=== PATIENT | female | born 1940 | race Hispanic/Latino ===

== ENCOUNTER 2018-10-05 08:44 | Day surgery (SDC) | payer MEDICARE ==
[2018-10-05] VITALS (8 sets, daily range): BP systolic 93–143; BP diastolic 37–57
[~2018-10-05] VITALS: Ht 162.6 cm; Wt 80.3 kg
[~2018-10-05 08:44] MED LIST: AMLO5TAB9 PO; ASPI-555 PO; BISA1POW MC; CETI10TA86 PO; CLON1PAT13 TD; CYCL30DR OP; FERR500P12 MC; FOLI0.8T22 PO; FURO40TA5 PO; GABA-531 PO; HYDR100T27 PO; INSLAN SQ; MAGN240P PO; MONT10TA24 PO; NITR0.4T50 SL; OMEP40CA37 PO; PRAV10TA39 PO; SODIUM CHLORIDE 0.9% 1000ML 1,000 ML IV ONE; SUCR1TAB2 PO; TRAM50TA4 PO
[2018-10-05] MEDS ORDERED: BISA5TAB12 PO (10:08)
[2018-10-05] MEDS ORDERED: FERR325T22 PO (10:08)
[2018-10-05] MEDS ORDERED: CLON.3P TD (10:08)
[2018-10-05] MEDS ORDERED: MAGN400T40 PO (10:08)
[2018-10-05] MEDS ORDERED: PROPOFOL 10 MG/ML 20ML VIAL IV ONE (11:23)
== END 2018-10-05 12:25 | disposition home or self-care (01) ==
LOC: ENDO 08:44 → DAH 08:44 → ENDO 12:25
PROVIDERS: ATTEND Internal Medicine
DX: K29.30 Chronic superficial gastritis without bleeding (principal); K31.89 Other diseases of stomach and duodenum; K21.0 Gastro-esophageal reflux disease with esophagitis; K44.9 Diaphragmatic hernia without obstruction or gangrene; K22.8 Other specified diseases of esophagus; K92.0 Hematemesis; D50.9 Iron deficiency anemia, unspecified; E78.5 Hyperlipidemia, unspecified; E11.22 Type 2 diabetes mellitus with diabetic chronic kidney disease; I12.0 Hypertensive chronic kidney disease with stage 5 chronic kidney disease or end stage renal disease; M19.90 Unspecified osteoarthritis, unspecified site; K59.01 Slow transit constipation; N18.6 End stage renal disease; Z90.49 Acquired absence of other specified parts of digestive tract; Z88.0 Allergy status to penicillin; Z99.2 Dependence on renal dialysis; Z79.4 Long term (current) use of insulin; Z79.82 Long term (current) use of aspirin; Z79.899 Other long term (current) drug therapy; Z98.890 Other specified postprocedural states
CPT/HCPCS: 36415; 43239; 82948 ×4; 84132; 88305; 88342; 93005; A4606; J2704; J7030